=== PATIENT | male | born 1970 | race Caucasian/White ===

== ENCOUNTER → 2024-01-03 | Outpatient (REF) | payer OTHER ==
[~2024-01-03] MED LIST: COLLAGENASE OINTMENT 30 GM TUBE ONE; LIDOCAINE VISC 2% SOLN 15 ML UDC ONE
== END ==
LOC: WCC 08:59
PROVIDERS: ATTEND Internal Medicine Infectious Disease
DX: E11.621 Type 2 diabetes mellitus with foot ulcer (principal); L97.429 Non-pressure chronic ulcer of left heel and midfoot with unspecified severity